=== PATIENT | male | born 1960 | race Caucasian/White ===

== ENCOUNTER 2016-09-07 11:53 | Emergency (ER) | payer OTHER ==
[~2016-09-07] VITALS: Ht 172.7 cm; Wt 85.0 kg
[~2016-09-07 11:53] MED LIST: ERGO2000 PO; ESCI10TA54 PO; LISI40TA4 PO; LORA1TAB PO; NAPR-681 PO; OMEP20TA80 PO; QUET200T PO
[2016-09-07] MEDS ORDERED: SODIUM CHLORIDE 0.9% 1,000 ML IV ONE (13:04)
[2016-09-07] MEDS ORDERED: ASPIRIN 325MG EC TABLET PO ONE (13:15)
[2016-09-07 14:16] LABS: BASOPHILS % 0.7 % (0.0-2.0); EOSINOPHILS % 2.1 % (0.0-5.0); HEMATOCRIT. 36.1 % (42.0-52.0); HEMOGLOBIN. 12.6 g/dL (14.0-18.0); LYMPHOCYTES % 36.2 % (20.0-50.0); MEAN CORPUSCULAR HEMOGLOBIN 31.5 pg (28.0-32.0); MEAN CORPUSCULAR VOLUME 90.1 fL (80.0-94.0); MEAN PLATELET VOLUME 7.8 fl (7.4-10.4); PLATELET 135 x1000/uL (130-400); RED CELL DISTRIBUTION WIDTH 14.6 % (11.6-14.6)
[2016-09-07 14:22] LABS: CHLORIDE 107 mEq/L (98-107)
[2016-09-07 14:28] LABS: CARBON DIOXIDE 25 mEq/L (21-32)
[2016-09-07 14:31] LABS: TROPONIN I < 0.02 ng/mL (0.00-0.04)
[2016-09-07] MEDS ORDERED: KCL 10MEQ/50ML PREMIX 50 ML IV ONE (15:45)
[2016-09-07] MEDS ORDERED: POTASSIUM CHLORIDE 20MEQ TABLET SR PO ONE ×2 (15:45→16:45)
[2016-09-07 17:41] LABS: CARBON DIOXIDE 28 mEq/L (21-32); CHLORIDE 107 mEq/L (98-107); TROPONIN I < 0.02 ng/mL (0.00-0.04)
[2016-09-07 18:04] VITALS: BP 132/77
== END 2016-09-07 19:04 | disposition home or self-care (01) ==
LOC: ER 12:33
DX: F41.9 Anxiety disorder, unspecified (principal); E87.6 Hypokalemia; F15.10 Other stimulant abuse, uncomplicated; I10 Essential (primary) hypertension; F20.9 Schizophrenia, unspecified; R00.2 Palpitations
CPT/HCPCS: 36415; 71010; 80048; 80053; 84484; 85025; 93005; 96361; 96365; 99285; J3480; J7030; Z7610; 96360

== ENCOUNTER 2016-09-13 04:23 | Emergency (ER) | payer OTHER ==
[~2016-09-13] VITALS: Ht 177.8 cm; Wt 96.0 kg
[2016-09-13] MEDS ORDERED: LORAZEPAM 2MG/ML CPJ IV STA (04:45)
[2016-09-13] MEDS ORDERED: SODIUM CHLORIDE 0.9% 1,000 ML IV ONE (04:45)
[2016-09-13 05:11] LABS: BASOPHILS % 0.6 % (0.0-2.0); EOSINOPHILS % 1.9 % (0.0-5.0); HEMATOCRIT. 40.8 % (42.0-52.0); HEMOGLOBIN. 14.3 g/dL (14.0-18.0); LYMPHOCYTES % 34.1 % (20.0-50.0); MEAN CORPUSCULAR HEMOGLOBIN 31.1 pg (28.0-32.0); MEAN CORPUSCULAR VOLUME 88.6 fL (80.0-94.0); MONOCYTES % 7.6 % (2.0-8.0); NEUTROPHILS % 55.8 % (40.0-76.0); PLATELET 199 x1000/uL (130-400); RED CELL DISTRIBUTION WIDTH 14.2 % (11.6-14.6)
[2016-09-13 05:26] LABS: AMMONIA 32 uMol/L (<32)
[2016-09-13 05:30] LABS: CARBON DIOXIDE 20 mEq/L (21-32); CHLORIDE 99 mEq/L (98-107); ETHANOL BLOOD 74 mg/dL; TROPONIN I < 0.02 ng/mL (0.00-0.04)
[2016-09-13] MEDS ORDERED: POTASSIUM BICARB/CIT ACID 25 MEQ TABLET.EFF PO NR (06:00)
[2016-09-13 06:11] LABS: CLARITY URINE CLEAR (CLEAR); COLOR URINE YELLOW (YELLOW); GLUCOSE URINE NEGATIVE (NEGATIVE); KETONES URINE NEGATIVE (NEGATIVE); LEUKOCYTE ESTERASE URINE NEGATIVE (NEGATIVE); NITRITE URINE NEGATIVE (NEGATIVE); OCCULT BLOOD URINE NEGATIVE (NEGATIVE); PROTEIN URINE NEGATIVE (NEGATIVE); SPECIFIC GRAVITY URINE 1.007 (1.005-1.030); UROBILINOGEN URINE 0.2 E.U./dL (0.2-1.0)
[2016-09-13 06:25] LABS: *AMPHETAMINES SCREEN URINE PRESUMTIVE POSITIVE (NEGATIVE); *BARBITURATES SCREEN URINE NEGATIVE (NEGATIVE); *BENZODIAZEPINES SCREEN URINE NEGATIVE (NEGATIVE); *COCAINE SCREEN URINE NEGATIVE (NEGATIVE); CANNABINOID URINE SCREEN NEGATIVE (NEGATIVE); METHADONE URINE SCREEN NEGATIVE (NEGATIVE); OPIATES URINE SCREEN NEGATIVE (NEGATIVE); PHENCYCLIDINE URINE SCREEN NEGATIVE (NEGATIVE)
[2016-09-13 11:05] VITALS: BP 138/83
== END 2016-09-13 11:06 | disposition home or self-care (01) ==
LOC: ER 04:35
DX: F32.9 Major depressive disorder, single episode, unspecified (principal); R45.851 Suicidal ideations; E87.6 Hypokalemia; I10 Essential (primary) hypertension; F20.9 Schizophrenia, unspecified; F15.10 Other stimulant abuse, uncomplicated; R74.0 Nonspecific elevation of levels of transaminase and lactic acid dehydrogenase [LDH]; F17.200 Nicotine dependence, unspecified, uncomplicated
CPT/HCPCS: 36415; 71010; 80053; 80305; 80307; 80329; 81003; 82140; 83690; 84132; 84443; 84484; 85025; 93005; 96361; 96374; 99285; 99406; G0482; J2060; J7030; Z7610

== ENCOUNTER 2016-11-16 13:48 | Inpatient (IN) | payer OTHER ==
[~2016-11-16] VITALS: Ht 180.3 cm; Wt 90.7 kg
[~2016-11-16 13:48] MED LIST changes: +OMEP20TA2 PO; -OMEP20TA80 PO
[2016-11-16] MEDS ORDERED: SODIUM CHLORIDE 0.9% 1,000 ML IV ONE (15:56)
[2016-11-16] MEDS ORDERED: LORAZEPAM 2MG/ML CPJ IV ONE (16:00)
[2016-11-16] MEDS ORDERED: ONDANSETRON HCL 4MG/2ML VIAL IV ONE (16:00)
[2016-11-16 16:39] LABS: CHLORIDE 109 mEq/L (98-107)
[2016-11-16 16:42] LABS: CLARITY URINE CLEAR (CLEAR); COLOR URINE YELLOW (YELLOW); GLUCOSE URINE NEGATIVE (NEGATIVE); KETONES URINE NEGATIVE (NEGATIVE); LEUKOCYTE ESTERASE URINE NEGATIVE (NEGATIVE); NITRITE URINE NEGATIVE (NEGATIVE); OCCULT BLOOD URINE NEGATIVE (NEGATIVE); PROTEIN URINE NEGATIVE (NEGATIVE); SPECIFIC GRAVITY URINE 1.015 (1.005-1.030)
[2016-11-16 16:47] LABS: BASOPHILS % 0.4 % (0.0-2.0); EOSINOPHILS % 1.1 % (0.0-5.0); HEMATOCRIT. 37.7 % (42.0-52.0); HEMOGLOBIN. 13.2 g/dL (14.0-18.0); LYMPHOCYTES % 21.7 % (20.0-50.0); MEAN CORPUSCULAR HEMOGLOBIN 31.1 pg (28.0-32.0); NEUTROPHILS % 66.8 % (40.0-76.0); PLATELET 182 x1000/uL (130-400); RED BLOOD CELL COUNT 4.24 mill/uL (4.7-6.1)
[2016-11-16 16:52] LABS: CARBON DIOXIDE 25 mEq/L (21-32); ETHANOL BLOOD < 10 mg/dL
[2016-11-16 16:55] LABS: *AMPHETAMINES SCREEN URINE PRESUMTIVE POSITIVE (NEGATIVE); *BARBITURATES SCREEN URINE NEGATIVE (NEGATIVE); *BENZODIAZEPINES SCREEN URINE NEGATIVE (NEGATIVE); *COCAINE SCREEN URINE NEGATIVE (NEGATIVE); CANNABINOID URINE SCREEN PRESUMTIVE POSITIVE (NEGATIVE); METHADONE URINE SCREEN NEGATIVE (NEGATIVE); OPIATES URINE SCREEN NEGATIVE (NEGATIVE); PHENCYCLIDINE URINE SCREEN NEGATIVE (NEGATIVE)
[2016-11-16] MEDS ORDERED: POTASSIUM CHLORIDE 20MEQ TABLET SR PO NR (17:30)
[2016-11-16] MEDS ORDERED: POTASSIUM CHLORIDE INJ 40 MEQ in DEXT 5% WATER 250 ML IV NR (17:30)
[2016-11-16] MEDS ORDERED: MAGNESIUM 2 G PREMIX 50 ML IV NR (17:30)
[2016-11-16] MEDS ORDERED: SODIUM CHLORIDE 0.9% 1,000 ML IV SCH (17:37)
[2016-11-16 21:50] VITALS: BP 126/91
[2016-11-16 22:00] VITALS: BP 126/91
[2016-11-17] VITALS (7 sets, daily range): BP systolic 114–134; BP diastolic 75–84
[2016-11-17] MEDS ORDERED: HYDROCODONE/ACETAMINOPHEN 5/325MG TABLET PO PRN (00:15)
[2016-11-17] MEDS ORDERED: AMLO10TA4 PO (02:25)
[2016-11-17] MEDS ORDERED: CLON1TAB PO (02:25)
[2016-11-17] MEDS ORDERED: IBUP-2030 PO (02:25)
[2016-11-17 06:53] LABS: HEMATOCRIT 39.9 % (42.0-52.0); HEMOGLOBIN 13.9 g/dL (14.0-18.0); MEAN CORPUSCULAR HEMOGLOBIN 31.6 pg (28.0-32.0); PLATELET 164 x1000/uL (130-400); RED BLOOD CELL COUNT 4.39 mill/uL (4.7-6.1); RED CELL DISTRIBUTION WIDTH 14.4 % (11.6-14.6)
[2016-11-17 07:36] LABS: CARBON DIOXIDE 28 mEq/L (21-32); CHLORIDE 107 mEq/L (98-107)
[2016-11-17] MEDS: SERTRALINE HCL 50MG TABLET PO SCH (09:11)
[2016-11-17] MEDS: CLONAZEPAM 1MG TABLET PO SCH ×2 (09:12→20:26)
[2016-11-17] MEDS: AMLODIPINE 10MG TABLET PO SCH (09:12)
[2016-11-17] MEDS: ENOXAPARIN 40MG/0.4ML SYR SUBCUT SCH (09:14)
[2016-11-18] VITALS: BP 114/79
[2016-11-18 04:00] VITALS: BP 97/65
[2016-11-18 08:00] VITALS: BP 107/77
[2016-11-18 08:02] LABS: HEMATOCRIT 40.7 % (42.0-52.0); HEMOGLOBIN 14.2 g/dL (14.0-18.0); MEAN CORPUSCULAR HEMOGLOBIN 31.8 pg (28.0-32.0); PLATELET 165 x1000/uL (130-400); RED BLOOD CELL COUNT 4.47 mill/uL (4.7-6.1); RED CELL DISTRIBUTION WIDTH 13.9 % (11.6-14.6)
[2016-11-18 08:30] LABS: CARBON DIOXIDE 28 mEq/L (21-32); CHLORIDE 106 mEq/L (98-107); TROPONIN I < 0.02 ng/mL (0.00-0.04)
[2016-11-18] MEDS: ENOXAPARIN 40MG/0.4ML SYR SUBCUT SCH (08:49)
[2016-11-18] MEDS: SERTRALINE HCL 50MG TABLET PO SCH (08:50)
[2016-11-18] MEDS: CLONAZEPAM 1MG TABLET PO SCH ×2 (08:50→22:16)
[2016-11-18] MEDS: AMLODIPINE 10MG TABLET PO SCH (08:54)
[2016-11-18 12:00] VITALS: BP 103/73
[2016-11-18 16:00] VITALS: BP 100/62
[2016-11-18 20:29] VITALS: BP 109/70
[2016-11-19 00:40] VITALS: BP 110/75
[2016-11-19 04:22] VITALS: BP 122/78
[2016-11-19 08:53] VITALS: BP 124/76
[2016-11-19] MEDS: AMLODIPINE 10MG TABLET PO SCH (11:04)
[2016-11-19] MEDS: CLONAZEPAM 1MG TABLET PO SCH (11:04)
[2016-11-19] MEDS: SERTRALINE HCL 50MG TABLET PO SCH (11:04)
[2016-11-19] MEDS: ENOXAPARIN 40MG/0.4ML SYR SUBCUT SCH (11:06)
[2016-11-19] MEDS ORDERED: NAPROXEN 500MG TABLET PO PRN (11:45)
[2016-11-19 12:32] VITALS: BP 124/76
== END 2016-11-19 13:45 | disposition home or self-care (01) | DRG 425 ==
LOC: ER 13:48 → 6WST 17:39 → EDBEDREQ 17:45 → EDBEDREQTM 17:45 → ENRESERV 18:35 → ER 20:37
PROVIDERS: ADMIT Internal Medicine; ATTEND Internal Medicine
DX: E87.6 Hypokalemia (principal); F20.9 Schizophrenia, unspecified; I10 Essential (primary) hypertension; Y90.9 Presence of alcohol in blood, level not specified; F15.10 Other stimulant abuse, uncomplicated; F17.210 Nicotine dependence, cigarettes, uncomplicated; F41.9 Anxiety disorder, unspecified; F10.20 Alcohol dependence, uncomplicated; R94.5 Abnormal results of liver function studies; Z79.899 Other long term (current) drug therapy; Z59.0 Homelessness
CPT/HCPCS: 36415; 80048; 80053; 80305; 81003; 83735; 84484; 85025; 85027; 93005; 96361; 96365; 96375; 99285; A6261; G0482; J1650; J2060; J2405; J3475; J3480; J7030; J7060

== ENCOUNTER 2016-12-17 15:13 | Emergency (ER) | payer OTHER ==
[~2016-12-17] VITALS: Ht 175.3 cm; Wt 80.0 kg
[~2016-12-17 15:13] MED LIST changes: +AMLO10TA4 PO; +CLON1TAB PO
[2016-12-17] MEDS ORDERED: SODIUM CHLORIDE 0.9% 1,000 ML IV ONE (16:05)
[2016-12-17] MEDS ORDERED: LORAZEPAM 2MG/ML CPJ IV STA (16:05)
[2016-12-17] MEDS ORDERED: DILTIAZEM HCL 5MG/ML 5ML VIAL IV ONE (16:15)
[2016-12-17 16:26] LABS: BASOPHILS % 1.1 % (0.0-2.0); EOSINOPHILS % 0.9 % (0.0-5.0); HEMATOCRIT. 39.1 % (42.0-52.0); HEMOGLOBIN. 13.7 g/dL (14.0-18.0); LYMPHOCYTES % 30.7 % (20.0-50.0); MEAN CORPUSCULAR HEMOGLOBIN 31.4 pg (28.0-32.0); MEAN CORPUSCULAR VOLUME 89.3 fL (80.0-94.0); MEAN PLATELET VOLUME 7.9 fl (7.4-10.4); MONOCYTES % 7.4 % (2.0-8.0); NEUTROPHILS % 59.9 % (40.0-76.0); PLATELET 272 x1000/uL (130-400); RED BLOOD CELL COUNT 4.38 mill/uL (4.7-6.1); RED CELL DISTRIBUTION WIDTH 14.4 % (11.6-14.6)
[2016-12-17 16:41] LABS: CARBON DIOXIDE 23 mEq/L (21-32); CHLORIDE 107 mEq/L (98-107); ETHANOL BLOOD 13 mg/dL; TROPONIN I < 0.02 ng/mL (0.00-0.04)
[2016-12-17] MEDS ORDERED: LORAZEPAM 2MG/ML CPJ IV ONE (17:30)
[2016-12-17 20:18] LABS: *AMPHETAMINES SCREEN URINE PRESUMTIVE POSITIVE (NEGATIVE); *BARBITURATES SCREEN URINE NEGATIVE (NEGATIVE); *BENZODIAZEPINES SCREEN URINE PRESUMTIVE POSITIVE (NEGATIVE); *COCAINE SCREEN URINE NEGATIVE (NEGATIVE); CANNABINOID URINE SCREEN NEGATIVE (NEGATIVE); METHADONE URINE SCREEN NEGATIVE (NEGATIVE); OPIATES URINE SCREEN NEGATIVE (NEGATIVE); PHENCYCLIDINE URINE SCREEN NEGATIVE (NEGATIVE)
[2016-12-17 21:10] VITALS: BP 136/78
== END 2016-12-17 21:29 | disposition home or self-care (01) ==
LOC: ER 15:13
DX: F15.129 Other stimulant abuse with intoxication, unspecified (principal); F10.20 Alcohol dependence, uncomplicated; Y90.0 Blood alcohol level of less than 20 mg/100 ml; R07.89 Other chest pain; R42 Dizziness and giddiness; R00.0 Tachycardia, unspecified; R94.31 Abnormal electrocardiogram [ECG] [EKG]; I10 Essential (primary) hypertension; F20.9 Schizophrenia, unspecified; F41.9 Anxiety disorder, unspecified
CPT/HCPCS: 36415; 71010; 80053; 80305; 84484; 85025; 93005; 96361; 96374; 96376; 99285; G0482; J2060; J7030; J7040; Z7610

== ENCOUNTER 2017-10-25 21:05 | Inpatient (IN) | payer OTHER ==
[~2017-10-25] VITALS: Ht 177.8 cm; Wt 95.3 kg
[2017-10-25] MEDS ORDERED: ACETAMINOPHEN 325MG TABLET PO STA (21:35)
[2017-10-25] MEDS ORDERED: SODIUM CHLORIDE 0.9% 1000ML BAG (SEPSIS BOLUS) IV ONE (21:45)
[2017-10-25 22:07] LABS: HEMATOCRIT. 40.7 % (42.0-52.0); HEMOGLOBIN. 14.2 g/dL (14.0-18.0); MEAN CORPUSCULAR HEMOGLOBIN 32.6 pg (28.0-32.0); MEAN CORPUSCULAR VOLUME 93.7 fL (80.0-94.0); MEAN PLATELET VOLUME 8.6 fl (7.4-10.4); PLATELET 160 x1000/uL (130-400); RED BLOOD CELL COUNT 4.35 mill/uL (4.7-6.1); RED CELL DISTRIBUTION WIDTH 13.2 % (11.6-14.6)
[2017-10-25 22:11] LABS: CHLORIDE 104 mEq/L (98-107); INR 1.3; PROTHROMBIN TIME 12.8 sec (9.1-11.1)
[2017-10-25 22:16] LABS: ETHANOL BLOOD 26 mg/dL
[2017-10-25 22:26] LABS: PLATELET ESTIMATE NORMAL
[2017-10-25] MEDS ORDERED: KCL 10MEQ/50ML PREMIX 50 ML IV ONE (22:30)
[2017-10-25] MEDS ORDERED: POTASSIUM CHLORIDE 20MEQ TABLET SR PO ONE (22:30)
[2017-10-25] MEDS ORDERED: MORPHINE SULFATE 4 MG/ML CPJ (NOT FOR IM USE) IV NR (22:40)
[2017-10-25] MEDS ORDERED: ONDANSETRON HCL 4MG/2ML INJ IV NR (22:40)
[2017-10-25 22:50] LABS: CLARITY URINE CLEAR (CLEAR); COLOR URINE DARK YELLOW (YELLOW); KETONES URINE TRACE (NEGATIVE); LEUKOCYTE ESTERASE URINE NEGATIVE (NEGATIVE); NITRITE URINE NEGATIVE (NEGATIVE); OCCULT BLOOD URINE NEGATIVE (NEGATIVE); PROTEIN URINE NEGATIVE (NEGATIVE); SPECIFIC GRAVITY URINE 1.022 (1.005-1.030)
[2017-10-25] MEDS ORDERED: CEFTRIAXONE 2 G PREMIX 50 ML IV NR (23:15)
[2017-10-25] MEDS ORDERED: METRONIDAZOLE 500 MG PREMIX 100 ML IV NR (23:15)
[2017-10-26] MEDS ORDERED: MORPHINE SULFATE 4 MG/ML CPJ (NOT FOR IM USE) IV ONE (00:45)
[2017-10-26 02:50] VITALS: BP 105/70
[2017-10-26] MEDS ORDERED: IOHEXOL-300 100 ML BOTTLE ONE (02:55)
[2017-10-26 04:00] VITALS: BP 105/70
[2017-10-26] MEDS ORDERED: ACETAMINOPHEN 325MG TABLET PO PRN (05:30)
[2017-10-26] MEDS ORDERED: LEVOFLOXACIN 500MG PREMIX 100 ML IV SCH (05:30)
[2017-10-26] MEDS ORDERED: IPRATROPIUM/ALBUTEROL 0.5-3(2.5)MG/3ML NEB HHN PRN (05:30)
[2017-10-26] MEDS ORDERED: METRONIDAZOLE 500 MG PREMIX 100 ML IV SCH (05:30)
[2017-10-26] MEDS ORDERED: HYDROCODONE/ACETAMINOPHEN 5/325MG TABLET PO PRN (05:30)
[2017-10-26] MEDS ORDERED: ONDANSETRON HCL 4MG/2ML INJ IV PRN (05:30)
[2017-10-26] MEDS: SODIUM CHLORIDE 0.9% 1,000 ML IV SCH (06:54)
[2017-10-26] MEDS: LEVOFLOXACIN 500MG PREMIX 100 ML IV SCH (06:55)
[2017-10-26] MEDS: METRONIDAZOLE 500 MG PREMIX 100 ML IV SCH ×3 (06:58→21:23)
[2017-10-26 08:00] VITALS: BP 125/80
[2017-10-26 09:42] LABS: HEMATOCRIT. 37.4 % (42.0-52.0); MEAN CORPUSCULAR HEMOGLOBIN 33.3 pg (28.0-32.0); MEAN PLATELET VOLUME 8.9 fl (7.4-10.4); PLATELET 113 x1000/uL (130-400); RED BLOOD CELL COUNT 3.89 mill/uL (4.7-6.1); RED CELL DISTRIBUTION WIDTH 13.5 % (11.6-14.6)
[2017-10-26] MEDS: ENOXAPARIN 40MG/0.4ML SYR SUBCUT SCH (09:46)
[2017-10-26 10:00] LABS: CHLORIDE 106 mEq/L (98-107)
[2017-10-26] MEDS: IPRATROPIUM/ALBUTEROL 0.5-3(2.5)MG/3ML NEB HHN SCH ×3 (11:34→23:46)
[2017-10-26 12:00] VITALS: BP 124/83
[2017-10-26] MEDS: MORPHINE SULFATE 4 MG/ML CPJ (NOT FOR IM USE) IV PRN (13:38)
[2017-10-26 16:00] VITALS: BP 118/74
[2017-10-26] MEDS ORDERED: POTASSIUM CHLORIDE 20MEQ TABLET SR PO NR (16:00)
[2017-10-26 20:00] VITALS: BP 110/72
[2017-10-27] VITALS: BP 97/60
[2017-10-27] MEDS: MORPHINE SULFATE 4 MG/ML CPJ (NOT FOR IM USE) IV PRN (01:41)
[2017-10-27] MEDS: IPRATROPIUM/ALBUTEROL 0.5-3(2.5)MG/3ML NEB HHN SCH ×3 (03:03→12:13)
[2017-10-27 04:00] VITALS: BP 100/70
[2017-10-27] MEDS: METRONIDAZOLE 500 MG PREMIX 100 ML IV SCH (05:48)
[2017-10-27] MEDS: SODIUM CHLORIDE 0.9% 1,000 ML IV SCH ×2 (05:48→08:50)
[2017-10-27 07:25] LABS: FERRITIN 188 ng/mL (22-322)
[2017-10-27 07:36] LABS: HEPATITIS B SURFACE ANTIGEN NEGATIVE
[2017-10-27 08:00] VITALS: BP 123/84
[2017-10-27 08:04] LABS: HEPATITIS B CORE AB IGM NEGATIVE
[2017-10-27 08:06] LABS: HEPATITIS A AB IGM NEGATIVE (NEGATIVE)
[2017-10-27] MEDS: ENOXAPARIN 40MG/0.4ML SYR SUBCUT SCH (08:50)
[2017-10-27] MEDS: LEVOFLOXACIN 500MG PREMIX 100 ML IV SCH (08:50)
[2017-10-27 09:12] LABS: PLATELET ESTIMATE SLIGHTLY DECREASED
[2017-10-27] MEDS ORDERED: POTASSIUM CHLORIDE 20MEQ TABLET SR PO SCH (09:15)
[2017-10-27 09:58] LABS: VITAMIN B12 SERUM 461 pg/mL (211-911)
[2017-10-27 12:00] VITALS: BP 124/81
[2017-10-27 13:32] VITALS: BP 124/81
== END 2017-10-27 15:17 | disposition home or self-care (01) | DRG 720 ==
LOC: ER 21:05 → 7WST 23:23 → EDBEDREQSVC 23:25 → EDBEDREQ 23:25 → EDBEDREQTM 23:25 → ENRESERV 10-26 01:25
PROVIDERS: ADMIT Internal Medicine; ATTEND Internal Medicine
DX: A41.9 Sepsis, unspecified organism (principal); D69.59 Other secondary thrombocytopenia; E27.8 Other specified disorders of adrenal gland; E46 Unspecified protein-calorie malnutrition; F32.3 Major depressive disorder, single episode, severe with psychotic features; K57.32 Diverticulitis of large intestine without perforation or abscess without bleeding; D53.9 Nutritional anemia, unspecified; D63.8 Anemia in other chronic diseases classified elsewhere; E87.6 Hypokalemia; F10.20 Alcohol dependence, uncomplicated; F17.210 Nicotine dependence, cigarettes, uncomplicated; F41.9 Anxiety disorder, unspecified; I10 Essential (primary) hypertension; J45.909 Unspecified asthma, uncomplicated; K70.30 Alcoholic cirrhosis of liver without ascites; Z79.899 Other long term (current) drug therapy; Z89.431 Acquired absence of right foot; Z68.30 Body mass index [BMI] 30.0-30.9, adult
CPT/HCPCS: 36415; 71045; 74177; 76700; 80053; 80076; 81003; 82607; 82728; 82746; 83540; 83550; 83605; 83690; 84484; 85025; 85610; 86705; 86709; 86803; 87040; 87086; 87340; 93005; 96361; 96365; 96367; 96375; 96376; 99291; G0482; J0696; J1650; J1956; J2270; J2405; J3480; J3490; J7030; J7040; J7620; Q9967

== ENCOUNTER 2017-12-29 18:11 | Emergency (ER) | payer OTHER ==
[~2017-12-29] VITALS: Ht 177.8 cm; Wt 103.0 kg
[2017-12-29] MEDS ORDERED: LORAZEPAM 2MG/ML CPJ IV ONE (19:45)
[2017-12-29 20:25] LABS: BASOPHILS % 0.8 % (0.0-2.0); EOSINOPHILS % 0.9 % (0.0-5.0); HEMATOCRIT. 36.6 % (42.0-52.0); HEMOGLOBIN. 12.8 g/dL (14.0-18.0); MEAN CORPUSCULAR HEMOGLOBIN 32.9 pg (28.0-32.0); MEAN CORPUSCULAR VOLUME 94.1 fL (80.0-94.0); MEAN PLATELET VOLUME 7.6 fl (7.4-10.4); MONOCYTES % 9.2 % (2.0-8.0); NEUTROPHILS % 60.1 % (40.0-76.0); PLATELET 168 x1000/uL (130-400); RED BLOOD CELL COUNT 3.89 mill/uL (4.7-6.1)
[2017-12-29 20:31] LABS: CHLORIDE 105 mEq/L (98-107)
[2017-12-29] MEDS ORDERED: SODIUM CHLORIDE 0.9% 1,000 ML IV ONE (21:32)
[2017-12-29 23:22] LABS: CLARITY URINE CLEAR (CLEAR); COLOR URINE DARK YELLOW (YELLOW); KETONES URINE TRACE (NEGATIVE); LEUKOCYTE ESTERASE URINE NEGATIVE (NEGATIVE); NITRITE URINE NEGATIVE (NEGATIVE); OCCULT BLOOD URINE NEGATIVE (NEGATIVE); PH URINE 6.5 (4.5-8.0); PROTEIN URINE NEGATIVE (NEGATIVE); SPECIFIC GRAVITY URINE 1.025 (1.005-1.030)
[2017-12-29 23:52] LABS: *BARBITURATES SCREEN URINE NEGATIVE (NEGATIVE); *COCAINE SCREEN URINE NEGATIVE (NEGATIVE); CANNABINOID URINE SCREEN PRESUMTIVE POSITIVE (NEGATIVE); METHADONE URINE SCREEN NEGATIVE (NEGATIVE); OPIATES URINE SCREEN NEGATIVE (NEGATIVE); PHENCYCLIDINE URINE SCREEN NEGATIVE (NEGATIVE)
[2017-12-29 23:53] LABS: *AMPHETAMINES SCREEN URINE NEGATIVE (NEGATIVE); *BENZODIAZEPINES SCREEN URINE NEGATIVE (NEGATIVE)
[2017-12-30] MEDS ORDERED: IOHEXOL-300 100 ML BOTTLE ONE (00:48)
[2017-12-30] MEDS ORDERED: MVI, ADULT NO.1 10 ML, FOLIC ACID 1 MG, THIAMINE HCL 100 MG in SODIUM CHLORIDE 0.9% 1,0... IV SCH ×4 (01:00)
[2017-12-30 03:09] VITALS: BP 128/67
[2017-12-30] MEDS ORDERED: ACETAMINOPHEN 500MG TABLET PO SCH (04:02)
== END 2017-12-30 04:13 | disposition home or self-care (01) ==
LOC: ER 18:20
DX: R10.13 Epigastric pain (principal); F15.921 Other stimulant use, unspecified with intoxication delirium; J18.9 Pneumonia, unspecified organism; R42 Dizziness and giddiness; R07.89 Other chest pain; J45.909 Unspecified asthma, uncomplicated; F32.9 Major depressive disorder, single episode, unspecified; I10 Essential (primary) hypertension; F12.10 Cannabis abuse, uncomplicated; Z98.890 Other specified postprocedural states; Z79.899 Other long term (current) drug therapy
CPT/HCPCS: 36415; 71045; 74177; 80053; 80305; 81003; 83605; 83690; 83880; 84484; 85025; 93005; 96361; 96365; 96375; 99284; G0482; J2060; J3411; J3490; J7030; Q9967

== ENCOUNTER 2018-01-29 12:21 | Emergency (ER) | payer OTHER ==
[~2018-01-29] VITALS: Ht 180.3 cm; Wt 93.0 kg
[2018-01-29] MEDS ORDERED: ALPRAZOLAM 0.5 MG TABLET PO ONE (12:45)
[2018-01-29] MEDS ORDERED: ASPIRIN 81MG TABLET PO ONE (12:45)
[2018-01-29 12:59] LABS: BASOPHILS % 0.8 % (0.0-2.0); HEMOGLOBIN. 13.6 g/dL (14.0-18.0); LYMPHOCYTES % 37.1 % (20.0-50.0); MEAN CORPUSCULAR VOLUME 94.1 fL (80.0-94.0); MEAN PLATELET VOLUME 7.6 fl (7.4-10.4); MONOCYTES % 8.1 % (2.0-8.0); PLATELET 203 x1000/uL (130-400); RED BLOOD CELL COUNT 4.14 mill/uL (4.7-6.1); RED CELL DISTRIBUTION WIDTH 15.1 % (11.6-14.6)
[2018-01-29 13:03] LABS: CHLORIDE 108 mEq/L (98-107)
[2018-01-29] MEDS ORDERED: POTASSIUM CHLORIDE 20MEQ TABLET SR PO ONE (13:30)
[2018-01-29 15:56] VITALS: BP 119/80
== END 2018-01-29 15:56 | disposition home or self-care (01) ==
LOC: ER 12:32
DX: F41.9 Anxiety disorder, unspecified (principal); R07.89 Other chest pain; I10 Essential (primary) hypertension; F20.9 Schizophrenia, unspecified; F12.10 Cannabis abuse, uncomplicated; F15.10 Other stimulant abuse, uncomplicated; Z79.899 Other long term (current) drug therapy
CPT/HCPCS: 36415; 71045; 83880; 84484; 93005; 99284

== ENCOUNTER 2018-06-29 20:18 | Emergency (ER) | payer OTHER ==
[~2018-06-29] VITALS: Ht 177.8 cm; Wt 92.0 kg
[2018-06-29] MEDS ORDERED: NITROGLYCERIN 0.4MG TABLET SL SL PRN (21:30)
[2018-06-29] MEDS ORDERED: ASPIRIN 81MG TABLET PO ONE (21:30)
[2018-06-29 21:53] LABS: BASOPHILS % 0.9 % (0.0-2.0); EOSINOPHILS % 0.8 % (0.0-5.0); HEMATOCRIT. 38.6 % (42.0-52.0); HEMOGLOBIN. 13.4 g/dL (14.0-18.0); LYMPHOCYTES % 23.4 % (20.0-50.0); MEAN CORPUSCULAR HEMOGLOBIN 33.4 pg (28.0-32.0); MEAN PLATELET VOLUME 8.2 fl (7.4-10.4); MONOCYTES % 8.4 % (2.0-8.0); NEUTROPHILS % 66.5 % (40.0-76.0); PLATELET 233 x1000/uL (130-400); RED BLOOD CELL COUNT 4.02 mill/uL (4.7-6.1); RED CELL DISTRIBUTION WIDTH 16.2 % (11.6-14.6)
[2018-06-29 22:06] LABS: CHLORIDE 109 mEq/L (98-107)
[2018-06-29 22:10] LABS: ETHANOL BLOOD 40 mg/dL
[2018-06-29] MEDS ORDERED: POTASSIUM CHLORIDE 20MEQ TABLET SR PO ONE (22:30)
[2018-06-29] MEDS ORDERED: HYDROCODONE/ACETAMINOPHEN 5/325MG TABLET PO ONE (22:30)
[2018-06-29] MEDS ORDERED: LORAZEPAM 0.5MG TABLET PO ONE (23:45)
[2018-06-30] MEDS ORDERED: LORAZEPAM 0.5MG TABLET PO SCH (00:30)
[2018-06-30] MEDS ORDERED: CHLORDIAZEPOXIDE 25MG CAPSULE PO ONE (02:00)
[2018-06-30 03:12] VITALS: BP 147/99
== END 2018-06-30 03:19 | disposition home or self-care (01) ==
LOC: ER 20:28
DX: R07.89 Other chest pain (principal); I10 Essential (primary) hypertension; Z98.890 Other specified postprocedural states; Z79.899 Other long term (current) drug therapy
CPT/HCPCS: 36415; 71045; 80320; 83880; 84484; 93005; 99284; G0480

== ENCOUNTER 2019-02-22 20:53 | Inpatient (IN) | payer OTHER ==
[~2019-02-22] VITALS: Ht 177.8 cm; Wt 90.7 kg
[~2019-02-22 20:53] MED LIST changes: -ESCI10TA54 PO; +ESCI10TA61 PO
[2019-02-23] MEDS ORDERED: SODIUM CHLORIDE 0.9% 1,000 ML IV ONE (00:42)
[2019-02-23] MEDS ORDERED: ASPIRIN 81MG TABLET PO ONE (00:45)
[2019-02-23] MEDS ORDERED: LORAZEPAM 2MG/ML CPJ IV ONE (00:45)
[2019-02-23 01:13] LABS: BASOPHILS % 0.4 % (0.0-2.0); EOSINOPHILS % 1.7 % (0.0-5.0); HEMATOCRIT. 36.7 % (42.0-52.0); HEMOGLOBIN. 12.9 g/dL (14.0-18.0); LYMPHOCYTES % 21.8 % (20.0-50.0); MEAN CORPUSCULAR HEMOGLOBIN 32.9 pg (28.0-32.0); MEAN CORPUSCULAR VOLUME 93.7 fL (80.0-94.0); MEAN PLATELET VOLUME 7.9 fl (7.4-10.4); MONOCYTES % 10.5 % (2.0-8.0); NEUTROPHILS % 65.6 % (40.0-76.0); PLATELET 150 x1000/uL (130-400); RED BLOOD CELL COUNT 3.92 mill/uL (4.7-6.1); RED CELL DISTRIBUTION WIDTH 15.1 % (11.6-14.6)
[2019-02-23 01:19] LABS: CHLORIDE 104 mEq/L (98-107)
[2019-02-23] MEDS ORDERED: POTASSIUM CHLORIDE 20MEQ TABLET SR PO ONE (02:00)
[2019-02-23] MEDS ORDERED: KCL 10MEQ/50ML PREMIX 50 ML IV ONE (02:00)
[2019-02-23 10:09] LABS: *AMPHETAMINES SCREEN URINE PRESUMTIVE POSITIVE (NEGATIVE); *BARBITURATES SCREEN URINE NEGATIVE (NEGATIVE); *BENZODIAZEPINES SCREEN URINE NEGATIVE (NEGATIVE); *COCAINE SCREEN URINE NEGATIVE (NEGATIVE); CANNABINOID URINE SCREEN NEGATIVE (NEGATIVE); METHADONE URINE SCREEN NEGATIVE (NEGATIVE); OPIATES URINE SCREEN NEGATIVE (NEGATIVE)
[2019-02-23 10:10] LABS: PHENCYCLIDINE URINE SCREEN NEGATIVE (NEGATIVE)
[2019-02-23] MEDS ORDERED: KCL 20MEQ/100ML PREMIX 100 ML IV NR (13:15)
[2019-02-23] MEDS ORDERED: MORPHINE SULFATE 2 MG/ML CPJ (NOT FOR IM USE) IV PRN (15:00)
[2019-02-23] MEDS ORDERED: CLONIDINE 0.1MG TABLET PO PRN (15:00)
[2019-02-23] MEDS ORDERED: HYDROCODONE/ACETAMINOPHEN 5/325MG TABLET PO PRN (15:00)
[2019-02-23] MEDS ORDERED: LORAZEPAM 0.5MG TABLET PO PRN (15:00)
[2019-02-23] MEDS ORDERED: GUAIFENESIN 200MG/10ML SUGAR FREE UDC PO PRN (15:00)
[2019-02-23] MEDS ORDERED: ACETAMINOPHEN 325MG TABLET PO PRN (15:00)
[2019-02-23] MEDS ORDERED: IPRATROPIUM/ALBUTEROL 0.5-3(2.5)MG/3ML NEB HHN PRN (15:00)
[2019-02-23] MEDS ORDERED: ONDANSETRON HCL 4MG/2ML INJ IV PRN (15:00)
[2019-02-23] MEDS ORDERED: DOCUSATE SODIUM 100MG CAPSULE PO PRN (15:00)
[2019-02-23] MEDS ORDERED: NON FORMULARY PATIENT HOME MED XX SCH (15:15)
[2019-02-23 16:39] VITALS: BP 136/82
[2019-02-23] MEDS ORDERED: CLONAZEPAM 1MG TABLET PO SCH (17:00)
[2019-02-23] MEDS ORDERED: CLONAZEPAM 0.5MG TABLET PO SCH (17:10)
[2019-02-23] MEDS: LISINOPRIL 40MG TABLET PO SCH (17:39)
[2019-02-23 18:13] LABS: INR 1.3; PROTHROMBIN TIME 13.6 sec (9.6-11.0)
[2019-02-23 18:22] LABS: LDL CHOLESTEROL 80 mg/dL (5-100); TOTAL IRON BINDING CAPACITY 366 ug/dL (250-450)
[2019-02-23 18:24] LABS: HDL CHOLESTEROL 48 mg/dL (40-59)
[2019-02-23 18:33] LABS: FOLIC ACID (FOLATE) SERUM >20 ng/mL ng/mL (>5.38)
[2019-02-23 18:34] LABS: FERRITIN 252 ng/mL (22-322)
[2019-02-23 18:44] LABS: VITAMIN B12 SERUM 924 pg/mL (211-911)
[2019-02-23 20:00] VITALS: BP 137/84
[2019-02-23] MEDS ORDERED: QUETIAPINE FUMARATE 50MG TABLET PO SCH (21:00)
[2019-02-24] VITALS: BP 126/78
[2019-02-24 04:00] VITALS: BP 132/70
[2019-02-24 07:28] LABS: CHLORIDE 112 mEq/L (98-107)
[2019-02-24] MEDS ORDERED: OMEPRAZOLE 20MG CAPSULE EXTENDED RELEASE PO SCH (07:40)
[2019-02-24 08:00] VITALS: BP 125/73
[2019-02-24 08:28] VITALS: BP 125/73
[2019-02-24] MEDS: LISINOPRIL 40MG TABLET PO SCH (08:59)
[2019-02-24] MEDS ORDERED: AMLODIPINE 10MG TABLET PO SCH (09:00)
[2019-02-24 09:18] LABS: BASOPHILS % 0.7 % (0.0-2.0); HEMATOCRIT. 37.2 % (42.0-52.0); HEMOGLOBIN. 12.8 g/dL (14.0-18.0); LYMPHOCYTES % 27.5 % (20.0-50.0); MEAN CORPUSCULAR HEMOGLOBIN 32.7 pg (28.0-32.0); MEAN CORPUSCULAR VOLUME 94.8 fL (80.0-94.0); MEAN PLATELET VOLUME 8.2 fl (7.4-10.4); MONOCYTES % 6.1 % (2.0-8.0); NEUTROPHILS % 62.7 % (40.0-76.0); PLATELET 107 x1000/uL (130-400); RED BLOOD CELL COUNT 3.92 mill/uL (4.7-6.1); RED CELL DISTRIBUTION WIDTH 15.2 % (11.6-14.6)
[2019-02-24] MEDS ORDERED: POTASSIUM CHLORIDE 20MEQ TABLET SR PO NR (11:45)
[2019-02-24 12:00] VITALS: BP 146/62
[2019-02-24] MEDS ORDERED: ATOR10TA69 MT (12:29)
[2019-02-24 13:57] VITALS: BP 127/88
== END 2019-02-24 16:42 | disposition home or self-care (01) | DRG 812 ==
LOC: ER 20:53 → 7WST 02-23 02:02 → ENRESERV 02-23 14:30
PROVIDERS: ADMIT Internal Medicine; ATTEND Internal Medicine
DX: T43.621A Poisoning by amphetamines, accidental (unintentional), initial encounter (principal); D69.59 Other secondary thrombocytopenia; K74.60 Unspecified cirrhosis of liver; F20.9 Schizophrenia, unspecified; B19.20 Unspecified viral hepatitis C without hepatic coma; I10 Essential (primary) hypertension; F10.20 Alcohol dependence, uncomplicated; D64.9 Anemia, unspecified; E87.6 Hypokalemia; F17.200 Nicotine dependence, unspecified, uncomplicated; D72.821 Monocytosis (symptomatic); E78.5 Hyperlipidemia, unspecified; I20.9 Angina pectoris, unspecified; Z82.49 Family history of ischemic heart disease and other diseases of the circulatory system; Z79.899 Other long term (current) drug therapy; Y92.89 Other specified places as the place of occurrence of the external cause
CPT/HCPCS: 36415; 71045; 80048; 80053; 80061; 80076; 80305; 82607; 82728; 82746; 83036; 83540; 83550; 83735; 84484; 85025; 93005; 99285; J2060; J3480; J7030